=== PATIENT | male | born 1965 | race African-American/Black ===

== ENCOUNTER 2023-07-13 01:01 | Emergency (ER) | payer SELFPAY ==
[2023-07-13] MEDS ORDERED: Ibuprofen 800 MG TAB ONE (02:19)
[2023-07-13] MEDS ORDERED: Acetaminophen 325 MG TAB ONE (02:19)
[2023-07-13] MEDS ORDERED: Albuterol 200 PUFF (6.7GM INHALER) ONE (02:19)
== END 2023-07-13 02:55 | disposition home or self-care (01) ==
LOC: MADERS 01:01
DX: J11.1 Influenza due to unidentified influenza virus with other respiratory manifestations (principal); J20.9 Acute bronchitis, unspecified; R03.0 Elevated blood-pressure reading, without diagnosis of hypertension; Z20.822 Contact with and (suspected) exposure to COVID-19
CPT/HCPCS: 71046; 87635; 87804